=== PATIENT | female | born 1935 | race Caucasian/White ===

== ENCOUNTER 2020-04-28 | Outpatient (CLI) | payer SELFPAY | END 2020-04-28 23:59 | disposition home or self-care (01) | DX: Z13.6 Encounter for screening for cardiovascular disorders (principal) ==

== ENCOUNTER 2021-08-01 11:16 | Outpatient (CLI) | payer SELFPAY ==
[~2021-08-01 11:16] MED LIST: AMIO200T61 PO; ASPI81TA44 PO; BETA1TAB18 PO; CALC-1215 PO; CHOL10002 PO; CLOP75TA34 PO; CYCL1DRO EACHEYE; FAMO40TA73 PO; IBUP-1984 PO; METO-539 PO; MULT-620 PO; PARO10TA85 PO; VALS1TAB8 PO; [UNRECOGNIZED DRUG - OTHER] PO
== END 2021-08-01 23:59 | disposition home or self-care (01) ==
LOC: HW VAS 11:16
DX: Z13.6 Encounter for screening for cardiovascular disorders (principal)